=== PATIENT | male | born 1995 | race Caucasian/White ===

== ENCOUNTER 2017-01-12 06:34 | Emergency (ER) | payer SELFPAY ==
[~2017-01-12] VITALS: Ht 172.7 cm; Wt 64.4 kg
[2017-01-12 08:45] VITALS: BP 138/97
== END 2017-01-12 09:10 | disposition other institution (70) ==
LOC: ED 06:34
DX: S51.011A Laceration without foreign body of right elbow, initial encounter (principal); S61.212A Laceration without foreign body of right middle finger without damage to nail, initial encounter; M79.645 Pain in left finger(s); W22.8XXA Striking against or struck by other objects, initial encounter; Y93.89 Activity, other specified; Y99.8 Other external cause status; Y92.89 Other specified places as the place of occurrence of the external cause
CPT/HCPCS: A4570

== ENCOUNTER 2017-01-12 06:34 | Emergency (ER) | payer OTHER | END 2017-01-12 09:10 | disposition other institution (70) | LOC: ED 06:34 | DX: Z02.89 Encounter for other administrative examinations (principal) ==